=== PATIENT | male | born 1945 | race Caucasian/White ===

== ENCOUNTER 2020-09-11 10:38 | Outpatient (REF) | payer MEDICARE, SELFPAY ==
[2020-09-11 14:37] LABS: Hemoglobin 15.1 g/dl (14.0-18.0); Mean Corpuscular HGB Conc 33.6 g/dl (31.0-36.0); Mean Corpuscular Hemoglobin 30.3 pg (27.0-33.0); Mean Corpuscular Volume 90.2 fL (80-98); Mean Platelet Volume 11.4 fL (9.4-12.4); Platelet Count 141 X10*3/uL (160-400); Red Blood Count 4.99 X10*6/uL (4.60-5.80); Red Cell Distribution Width 13.3 % (11.0-16.0); White Blood Count 7.2 X10*3/uL (4.8-10.8)
[2020-09-11 14:59] LABS: Alanine Aminotransferase 11 U/L (0-40); Albumin Level 4.3 g/dL (3.5-5.0); Alkaline Phosphatase 58 U/L (39-117); Anion Gap 15 (12-20); Aspartate Amino Transferase 19 U/L (5-37); Bilirubin Total 0.9 mg/dL (0.0-1.0); Blood Urea Nitrogen 24 mg/dL (9-16); Calcium 10.3 mg/dL (8.4-10.2); Carbon Dioxide 24 mmol/L (22-29); Chloride 108 mmol/L (96-108); Cholesterol 144 mg/dL; Estimated Glomerular Filt Rate 48; Glucose Fasting 99 mg/dL (60-99); HDL Cholesterol 41 mg/dL; LDL Cholesterol Calculated 75 mg/dl; Potassium 4.8 mmol/L (3.3-5.1); Sodium 142 mmol/L (135-145); Total Protein 6.8 g/dL (6.5-8.0); Triglycerides 143 mg/dL
== END 2020-09-11 10:39 | disposition home or self-care (01) ==
LOC: HO.HMGCLDS 10:38
PROVIDERS: PCP Internal Medicine; Visit Provider Internal Medicine
DX: E78.5 Hyperlipidemia, unspecified (principal); G47.33 Obstructive sleep apnea (adult) (pediatric); K52.9 Noninfective gastroenteritis and colitis, unspecified
CPT/HCPCS: 36415; 80053; 80061; 85027

== ENCOUNTER 2020-10-11 14:34 | Outpatient (REF) | payer MEDICARE, SELFPAY ==
[2020-10-11 16:28] LABS: Glucose Urine UA NEG (NEG); Leukocyte Esterase Urine NEG (NEG); Nitrite Urine NEG (NEG); Specific Gravity - Urine 1.025 (1.005-1.025); Urine Blood NEG (NEG); Urine Ketones NEG (NEG); Urine Protein TRACE MG/DL (NEG-TRACE)
[2020-10-11 16:32] LABS: Appearance Urine CLEAR; Color Urine YELLOW
== END 2020-10-11 14:35 | disposition home or self-care (01) ==
LOC: HO.HMGCLDS 14:34
PROVIDERS: PCP Internal Medicine; Visit Provider Internal Medicine
DX: N18.30 Chronic kidney disease, stage 3 unspecified (principal)
CPT/HCPCS: 81003

== ENCOUNTER 2020-10-20 10:15 | Outpatient (REF) | payer MEDICARE, SELFPAY ==
--- NOTE | ~2020-10-20 | US_ITS ---
EXAMINATION: US RETROPERITONEAL COMPLETE (RENAL) CLINICAL INFORMATION: Chronic kidney disease, stage 3 (unspecified). COMPARISON: None TECHNIQUE: Real-time imaging of the kidneys and bladder. FINDINGS: RIGHT KIDNEY: 13.4 x 5.8 x 5.9 cm (SAG x AP x TRV). The kidney is normal in size, contour, and echogenicity. Renal cortical thickness is normal. There are 2 simple cysts measuring 1.1 cm in the midpole and 0.8 cm in the midpole. There is a small cortical calcification or stone in the upper pole measuring 3 mm. No hydronephrosis. LEFT KIDNEY: 13.6 x 6.5 x 4.5 cm (SAG x AP x TRV). The kidney is normal in size, contour, and echogenicity. Renal cortical thickness is normal. There are 2 simple cysts measuring 1 cm in the midpole and 1.2 cm in the lower pole. No renal calculi or hydronephrosis. BLADDER: The bladder wall is thickened and trabeculated. No stone or mass is seen. Bilateral ureteral jets are demonstrated. Prevoid bladder volume is 184 mL. Postvoid bladder volume is 9.5 mL. Prostate volume is 61.3 mL. The prostate gland is enlarged. There are multiple liver cysts. Some appear complex with septations. US/US retroperitoneal comp IMPRESSION: Small bilateral renal cysts. Question small stone versus cortical calcification in the upper pole of the right kidney. Thickened trabeculated bladder wall. Enlarged prostate gland. No post void bladder residual. .
== END 2020-10-20 10:16 | disposition home or self-care (01) ==
LOC: HO.HMGCX 10:15
PROVIDERS: PCP Internal Medicine; Visit Provider Internal Medicine
DX: M18.30 Unilateral post-traumatic osteoarthritis of first carpometacarpal joint, unspecified hand (principal)
CPT/HCPCS: 76770

== ENCOUNTER 2021-04-12 10:59 | Outpatient (REF) | payer MEDICARE, SELFPAY ==
[2021-04-12 14:04] LABS: Hematocrit 46.3 % (42.0-52.0); Hemoglobin 15.9 g/dl (14.0-18.0); Mean Corpuscular HGB Conc 34.3 g/dl (31.0-36.0); Mean Corpuscular Hemoglobin 30.9 pg (27.0-33.0); Mean Corpuscular Volume 89.9 fL (80.0-98.0); Mean Platelet Volume 10.6 fL (9.4-12.4); Platelet Count 137 X10*3/uL (160-400); Red Blood Count 5.15 X10*6/uL (4.60-5.80); Red Cell Distribution Width 12.7 % (11.0-16.0); White Blood Count 3.7 X10*3/uL (4.8-10.8)
[2021-04-12 14:22] LABS: Alanine Aminotransferase 10 U/L (0-40); Albumin Level 4.2 g/dL (3.5-5.0); Alkaline Phosphatase 69 U/L (39-117); Anion Gap 12 (12-20); Aspartate Amino Transferase 13 U/L (5-37); Bilirubin Total 0.8 mg/dL (0.0-1.0); Blood Urea Nitrogen 17 mg/dL (9-16); Carbon Dioxide 28 mmol/L (22-29); Chloride 106 mmol/L (96-108); Cholesterol 198 mg/dL; Estimated Glomerular Filt Rate 55; Glucose Fasting 100 mg/dL (60-99); HDL Cholesterol 34 mg/dL; LDL Cholesterol Calculated 134 mg/dl; Potassium 4.2 mmol/L (3.3-5.1); Sodium 142 mmol/L (135-145); Total Protein 6.8 g/dL (6.5-8.0); Triglycerides 153 mg/dL
== END 2021-04-12 11:00 | disposition home or self-care (01) ==
LOC: HO.HMGCLDS 10:59
PROVIDERS: PCP Internal Medicine; Visit Provider Internal Medicine
DX: E66.9 Obesity, unspecified (principal); E78.5 Hyperlipidemia, unspecified; N18.30 Chronic kidney disease, stage 3 unspecified
CPT/HCPCS: 36415; 80053; 80061; 85027

== ENCOUNTER 2021-05-25 13:47 | Outpatient (REF) | payer MEDICARE, SELFPAY ==
[2021-05-25 16:28] LABS: MANUAL DIFF FLAG NO
[2021-05-25 16:34] LABS: Basophils Percent Auto 0.2 % (0-2); Eosinophils Absolute Auto 0.1 X10*3/uL (0.0-0.4); Eosinophils Percent Auto 1.7 % (0-4); Hematocrit 46.5 % (42.0-52.0); Hemoglobin 15.7 g/dl (14.0-18.0); Imm Gran Abs Auto 0.02 X10*3/uL (0.00-0.03); Imm Gran Pct Auto 0.4 % (0.0-0.4); Lymphocytes Absolute Auto 0.5 X10*3/uL (1.2-4.9); Lymphocytes Percent Auto 11.2 % (20-40); Mean Corpuscular HGB Conc 33.8 g/dl (31.0-36.0); Mean Corpuscular Hemoglobin 30.7 pg (27.0-33.0); Mean Corpuscular Volume 90.8 fL (80.0-98.0); Mean Platelet Volume 10.5 fL (9.4-12.4); Monocytes Absolute Auto 0.4 X10*3/uL (0.1-1.2); Monocytes Percent Auto 9.3 % (2-11); Neutrophils Absolute Auto 3.6 x10*3/uL (2.0-8.3); Neutrophils Percent Auto 77.2 % (45-73); Platelet Count 133 X10*3/uL (160-400); Red Blood Count 5.12 X10*6/uL (4.60-5.80); Red Cell Distribution Width 13.4 % (11.0-16.0); White Blood Count 4.6 X10*3/uL (4.8-10.8)
[2021-05-25 16:43] LABS: Alanine Aminotransferase 8 U/L (0-40); Albumin Level 4.5 g/dL (3.5-5.0); Alkaline Phosphatase 60 U/L (39-117); Anion Gap 12 (12-20); Aspartate Amino Transferase 14 U/L (5-37); Blood Urea Nitrogen 22 mg/dL (9-16); Calcium 10.2 mg/dL (8.4-10.2); Carbon Dioxide 30 mmol/L (22-29); Chloride 105 mmol/L (96-108); Cholesterol 223 mg/dL; Estimated Glomerular Filt Rate 58; Glucose Fasting 100 mg/dL (60-99); HDL Cholesterol 47 mg/dL; LDL Cholesterol Calculated 149 mg/dl; Potassium 4.6 mmol/L (3.3-5.1); Sodium 142 mmol/L (135-145); Total Protein 7.1 g/dL (6.5-8.0); Triglycerides 135 mg/dL
== END 2021-05-25 13:48 | disposition home or self-care (01) ==
LOC: HO.HMGCLDS 13:47
PROVIDERS: Visit Provider Internal Medicine
DX: E66.9 Obesity, unspecified (principal); N18.30 Chronic kidney disease, stage 3 unspecified
CPT/HCPCS: 36415; 80053; 80061; 85025

== ENCOUNTER 2021-07-20 09:00 | Outpatient (RCR) | payer MEDICARE, SELFPAY ==
--- NOTE | 2021-06-27 11:00 | MHC.PT.EP ---
[facility] [place] [facility] [place] [facility] [place] Office [address] Gabby Anand 140 [facility] [phone] F: [phone] F: [phone] F: [phone] F: [phone] Physical Therapy Plan of Care Date of Evaluation: Date of Surgery: Diagnosis: This is a 75 yo male presenting to skilled PT with a script for hamstring strain, B Assessment: This is a 75 yo male presenting to skilled PT with a script for hamstring strain, B. Patient reports B leg pain that started at the end of April when he was pushing his in a wheelchair for the majority of the day while in [place]. He reports he felt great until the next day when he felt a lot of pain in the posterior knees. Pain is located posterior distal hamstring to proximal gastroc B (more lateral). Pain is described as stiff and not fluid . R is worse than the L. Pain varies though. He has had this pain in the past but it resolved within 3 days. Assessment reveals pain that ranges up to a 8/10. He demos decreased knee, hip and ankle ROM, decreased BLE and core strength, impaired gait pattern as described as above, impaired joint mobility throughout the knees and patella's as well as gross functional decline with standing, sitting and higher level exercises/sport such as softball. He is a good candidate for skilled PT 2x/wk for 5wks. Frequency and Duration: The patient will be seen 2x/wk for 5wks Short Term Goals: (in 2 wks) I in HEP Improve knee ROM by at least 10 degs B Improve ankle ROM by at least 5 degs B Trial softball [employer] Goals: (in 5 wks) Demos functional ROM and strength without more than 2/10 pain Improve outcome measure by at least 10 points Improve pain at the worst to no more than 2/10 Demo proper lifting techniques without increase in pain or radiating symptoms Normalize gait pattern Treatment Plan: Modalities to reduce pain, spasms and effusion. Manual therapy to restore motion and function. Therapeutic exercise to improve strength and flexibility. Neuromuscular re-education for posture and balance. Therapeutic activities to return to functional activities of daily living. Electronically signed by: Ananya Burgos, PT Please sign and return to therapist. Thank you for your referral.
--- NOTE | 2021-07-27 07:50 | MHC.PT.DC ---
[facility] [place] Office [place] Office [place] Office [address] Gabby Anand [address] [phone] F: [phone] F: [phone] F: [phone] F: [phone] Physical Therapy Discharge Report Diagnosis: This is a 75 yo male presenting to skilled PT with a script for hamstring strain, B Date of Surgery: Date of Evaluation: 06/27/21 Date of Discharge: 07/27/21 Treatments to Date: 3 Cancellations to Date: 0 No Shows to Date: 0 Discharge Status: Achieved Goals Improved Function Independent with HEP Patient Elected to Stop Discharge Summary: Jemal reports a longer week at work where he was active, he moved slowly but was able to tolerate everything. He was trying some softball work after his PT appointments and had a follow up with his MD. He has been feeling good, he called our office and requested to be DC'd at this time. He has been feeling better with less stiffness and pain, I did educate him on his continued lack of knee extension and how he needs to continue to stretch/may need referral to ortho in the future if the problem continues to be an issue. Electronically signed by: Ananya Burgos PT Please sign and return to therapist. Thank you for your referral.
== END 2021-07-27 07:50 | disposition home or self-care (01) ==
LOC: HO.PTCHIC 09:00
PROVIDERS: PCP Internal Medicine; Visit Provider Internal Medicine
DX: S76.311A Strain of muscle, fascia and tendon of the posterior muscle group at thigh level, right thigh, initial encounter (principal); S76.312A Strain of muscle, fascia and tendon of the posterior muscle group at thigh level, left thigh, initial encounter
CPT/HCPCS: 97110; 97162

== ENCOUNTER 2021-07-20 09:34 | Outpatient (REF) | payer MEDICARE, SELFPAY ==
[2021-07-20 11:39] LABS: Alanine Aminotransferase 11 U/L (0-40); Albumin Level 4.2 g/dL (3.5-5.0); Alkaline Phosphatase 58 U/L (39-117); Anion Gap 11 (12-20); Aspartate Amino Transferase 15 U/L (5-37); Bilirubin Total 0.5 mg/dL (0.0-1.0); Blood Urea Nitrogen 23 mg/dL (9-16); Calcium 10.1 mg/dL (8.4-10.2); Carbon Dioxide 25 mmol/L (22-29); Chloride 109 mmol/L (96-108); Cholesterol 199 mg/dL; Estimated Glomerular Filt Rate 55; Glucose Fasting 91 mg/dL (60-99); HDL Cholesterol 39 mg/dL; LDL Cholesterol Calculated 126 mg/dl; Potassium 4.3 mmol/L (3.3-5.1); Sodium 141 mmol/L (135-145); Total Protein 6.7 g/dL (6.5-8.0); Triglycerides 171 mg/dL
[2021-07-20 11:41] LABS: Appearance Urine CLEAR; Color Urine YELLOW; Glucose Urine UA NEG (NEG); Leukocyte Esterase Urine NEG (NEG); Nitrite Urine NEG (NEG); PH 5.5 (5.0-8.0); Specific Gravity - Urine >= 1.030 (1.005-1.025); Urine Blood NEG (NEG); Urine Ketones NEG (NEG); Urine Protein NEG (NEG-TRACE)
[2021-07-20 12:05] LABS: RBC Urine 0 /HPF (0); Squamous Epithelial Cell Urine TRACE /LPF; WBC Urine 0-2 /HPF (0-4)
[2021-07-25 22:31] LABS: Apolipoprotein B 106 mg/dL (<90)
== END 2021-07-20 09:35 | disposition home or self-care (01) ==
LOC: HO.HMGCLDS 09:34
PROVIDERS: Visit Provider Internal Medicine
DX: E78.5 Hyperlipidemia, unspecified (principal); N18.30 Chronic kidney disease, stage 3 unspecified
CPT/HCPCS: 36415; 80053; 80061; 81001; 82172

== ENCOUNTER 2021-08-01 11:55 | Outpatient (REF) | payer MEDICARE, SELFPAY ==
--- NOTE | ~2021-08-01 | XR_ITS ---
EXAMINATION: XR CERVICAL SPINE CLINICAL INFORMATION: Pain COMPARISON: None TECHNIQUE: 3 views of the cervical spine including swimmer's view were obtained. FINDINGS: The C1-C5 vertebral bodies are visualized. The C6 and C7 vertebral bodies are not well visualized despite swimmer's view. There is curvature of the lower cervical spine to the left. There is multilevel degenerative spondylosis. 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 Prevertebral soft tissues are normal. XR/XR cervical spine 2V IMPRESSION: Nonvisualization of the C6 and C7 vertebral bodies. Multilevel degenerative changes.
== END 2021-08-01 11:56 | disposition home or self-care (01) ==
LOC: HO.HMGCX 11:55
PROVIDERS: PCP Internal Medicine; Visit Provider Internal Medicine
DX: M79.603 Pain in arm, unspecified (principal)
CPT/HCPCS: 72040